=== PATIENT | male | born 1985 | race Caucasian/White ===

== ENCOUNTER 2022-11-28 15:44 | Emergency (ER) | payer OTHER, SELFPAY ==
[2022-11-28 15:50] VITALS: BP 184/99; PULSE 94; RESP 18; TEMP 36.2; O2SAT 100
--- NOTE | 2022-11-28 16:05 | ED.EAR ---
HPI - Ear Problem General Chief complaint: Ear Stated complaint: ear infection Time Seen by Provider: 11/28/22 15:59 Source: patient Mode of arrival: ambulatory Limitations: no limitations History of Present Illness HPI Narrative: Patient presents today complaining of left ear pain and canal swelling since last night. Three days ago, he was diagnosed with bilateral otitis media and left ruptured TM at a different Urgent [facility] and was started on Augmentin. He started having yellow drainage from the ear yesterday. He called telemedicine today and was told he needed to be evaluated and possibly get a wick placed. They have already sent him in some antibiotic drops for otitis externa, but he has not picked them up yet. He currently rates his pain 5/10 and has been taking ibuprofen with some relief. Related Data Home Medications Medication Instructions Recorded Confirmed amoxicillin 875 mg-potassium 1 tablet PO BID 11/28/22 11/28/22 clavulanate 125 mg tablet Allergies Allergy/AdvReac Type Severity Reaction Status Date / Time No Known Allergies Allergy Verified 11/28/22 15:57 Review of Systems Review of Systems: CONSTITUTIONAL: Denies body aches, fever, chills, or sweats. EYES: Denies visual changes, redness, or discharge. ENT: Denies rhinorrhea, congestion, sore throat. + left ear pain and swelling CARDIOVASCULAR: Denies chest pain, palpitations, or edema. RESPIRATORY: Denies cough or dyspnea. GASTROINTESTINAL: Denies abdominal pain, nausea, vomiting, or diarrhea. GENITOURINARY: Denies dysuria or hematuria. SKIN: Denies rash, itching, or wounds. MUSCULOSKELETAL: Denies back pain, joint pain, or myalgia. NEUROLOGIC: Denies headache, numbness, tingling, or weakness. PSYCH: Denies depression or anxiety. PMFSH Comments At time of signature, I have reviewed and agree with nursing past medical, surgical, social and family history unless otherwise noted. Please see nursing chart for further information. There is no relevant family history pertinent to the presenting complaint Exam Narrative: GENERAL: Well-appearing, well-nourished, and in no acute distress. HEAD: Normocephalic, atraumatic. EYES: EOMI. No redness or drainage. Conjunctivae normal. ENT: Mucous membranes pink and moist. Nares clear. No rhinorrhea. Right TM with very slight erythema. Left ear canal is mild to moderately edematous with yellow watery discharge. No wick necessary at this time. Left TM is occluded with discharge.+ movement tenderness NECK: Normal AROM. CHEST: No respiratory distress. EXTREMITIES: Normal range of motion. No edema. SKIN: Warm, dry, no rash. Capillary refill normal. Normal skin turgor. NEURO: No focal deficits. Alert and oriented x3. Gait steady. PSYCH: Normal affect. No signs of depression or anxiety. Course Course Level of Care: Express Care Visit Vital Signs Vital signs: Vital Signs Temperature 97.2 F L 11/28/22 15:50 Pulse Rate 94 11/28/22 15:50 Respiratory Rate 18 11/28/22 15:50 Blood Pressure 184/99 H 11/28/22 15:50 Pulse Oximetry 100 11/28/22 15:50 Oxygen Delivery Room Air 11/28/22 15:50 Temperature 97.2 F L 11/28/22 15:50 Pulse Rate 94 11/28/22 15:50 Respiratory Rate 18 11/28/22 15:50 Blood Pressure 184/99 H 11/28/22 15:50 Pulse Oximetry 100 11/28/22 15:50 Oxygen Delivery Room Air 11/28/22 15:50 Medical Decision Making MDM Narrative Medical decision making narrative: Exam consistent with left otitis externa, but no indication for a week at this time. Patient has drops waiting for him at the pharmacy. No prescription medications indicated at this time. Anticipatory guidance given. Differential Diagnosis Differential Diagnosis: Otitis media, otitis externa, ruptured TM, serous otitis Vital Signs Vital Signs: Vital Signs Temperature 97.2 F L 11/28/22 15:50 Pulse Rate 94 11/28/22 15:50 Respiratory Rate 18 11/28/22 15:50 Blood Pressure 18
== END 2022-11-28 16:15 | disposition home or self-care (01) ==
PROVIDERS: Emergency Provider Nurse Practitioner
DX: H60.502 Unspecified acute noninfective otitis externa, left ear (principal)
CPT/HCPCS: 99211; G0463